=== PATIENT | female | born 1975 | race Two or more races ===

== ENCOUNTER 2021-12-22 12:34 | Emergency (ER) | payer SELFPAY ==
[~2021-12-22] VITALS: Ht 175.3 cm; Wt 61.2 kg
[2021-12-22] MEDS ORDERED: ASPirin 81 mg TAB PO ONE (13:00)
[2021-12-22 13:53] LABS: Basophils # (auto) 0.1 10 ^3/uL (0-0.2); Basophils % (auto) 0.7 % (0.0-2.0); Eosinophils # (auto) 0 10 ^3/uL (0-0.8); Eosinophils % (auto) 0.5 % (0.0-7.0); Hemoglobin 13.4 g/dL (12.2-16.2); Lymphocytes # (auto) 1.6 10 ^3/uL (0.4-5.4); Lymphocytes % (auto) 18.7 % (10.0-50.0); Mean Corpuscular Hemoglobin 30.7 pg (28.0-32.0); Mean Corpuscular Hgb Conc. 33.4 g/dL (32.0-36.0); Mean Corpuscular Volume 91.7 fL (80.0-100.0); Monocytes # (auto) 0.8 10 ^3/uL (0-1.3); Monocytes % (auto) 9.1 % (0.0-12.0); Neutrophils # (auto) 5.9 10 ^3/uL (1.6-8.6); Nucleated Red Blood Cells % 0.1 %; Red Blood Cells 4.36 10^6/uL (4.0-5.20); Red Cell Distribution Width 12.6 % (11.8-14.3); White Blood Cell 8.4 10^3/uL (4.4-10.8)
[2021-12-22 14:24] LABS: Albumin 3.7 g/dL (3.4-5.0); Calcium 8.7 mg/dL (8.5-10.1); Potassium 3.6 mmol/L (3.5-5.1)
[2021-12-22 14:28] LABS: BUN/Creatinine Ratio 6.3; Bilirubin, Total 0.4 mg/dL (0.2-1.0); Total Protein 7.7 g/dL (6.4-8.2)
[2021-12-22] MEDS ORDERED: LORA0.5T20 PO ×4 (16:38→17:29)
[2021-12-22 17:46] VITALS: BP 125/72
== END 2021-12-22 17:49 | disposition home or self-care (01) ==
LOC: ER 12:34
DX: R07.89 Other chest pain (principal); F41.9 Anxiety disorder, unspecified
CPT/HCPCS: 36415; 71045; 80053; 84484; 85025; 93005

== ENCOUNTER 2022-08-12 12:54 | Emergency (ER) | payer MEDICAID ==
[~2022-08-12] VITALS: Ht 172.7 cm; Wt 63.3 kg
[~2022-08-12 12:54] MED LIST: LORA0.5T20 PO
[2022-08-12 13:38] LABS: Basophils # (auto) 0.1 10 ^3/uL (0-0.2); Basophils % (auto) 2.2 % (0.0-2.0); Eosinophils # (auto) 0.3 10 ^3/uL (0-0.8); Eosinophils % (auto) 5.8 % (0.0-7.0); Hematocrit 38.9 % (36.0-46.0); Lymphocytes # (auto) 2.2 10 ^3/uL (0.4-5.4); Lymphocytes % (auto) 46.9 % (10.0-50.0); Mean Corpuscular Hemoglobin 30.1 pg (28.0-32.0); Mean Corpuscular Hgb Conc. 33.4 g/dL (32.0-36.0); Mean Corpuscular Volume 90.1 fL (80.0-100.0); Monocytes # (auto) 0.5 10 ^3/uL (0-1.3); Monocytes % (auto) 11.5 % (0.0-12.0); Neutrophils # (auto) 1.6 10 ^3/uL (1.6-8.6); Neutrophils % (auto) 33.6 % (37.0-80.0); Nucleated Red Blood Cells % 0.2 %; Red Blood Cells 4.32 10^6/uL (4.0-5.20); Red Cell Distribution Width 12.4 % (11.8-14.3); White Blood Cell 4.6 10^3/uL (4.4-10.8)
[2022-08-12 13:53] LABS: Albumin 4.3 g/dL (3.4-5.0); Calcium 9.1 mg/dL (8.5-10.1); Magnesium 2.2 mg/dL (1.6-2.6); Potassium 3.9 mmol/L (3.5-5.1)
[2022-08-12 13:54] LABS: INR 1.09 (0.9-1.15); Partial Thromboplastin Time 28.2 sec (24.6-33.4)
[2022-08-12 13:56] LABS: Bilirubin, Total 0.9 mg/dL (0.2-1.0)
[2022-08-12 17:21] VITALS: BP 125/80
== END 2022-08-12 17:23 | disposition home or self-care (01) ==
LOC: ER 12:54
DX: F41.9 Anxiety disorder, unspecified (principal); R07.89 Other chest pain; M54.2 Cervicalgia; R41.82 Altered mental status, unspecified; R42 Dizziness and giddiness; Z79.899 Other long term (current) drug therapy; Z90.710 Acquired absence of both cervix and uterus
CPT/HCPCS: 36415; 70450; 71045; 72040; 80053; 82962; 83735; 83880; 84484; 85025; 85379; 85610; 85730; 93005

== ENCOUNTER 2024-03-12 15:41 | Emergency (ER) | payer MEDICAID ==
[~2024-03-12] VITALS: Ht 172.7 cm; Wt 59.0 kg
[~2024-03-12 15:41] MED LIST changes: +LORA-1121 PO; -LORA0.5T20 PO
[2024-03-12 18:23] VITALS: BP 138/67; TEMP 98.3
[2024-03-12 18:31] VITALS: PULSE 89; RESP 12; O2SAT 99
== END 2024-03-12 19:42 | disposition home or self-care (01) ==
LOC: ER 15:41
DX: T63.2X1A Toxic effect of venom of scorpion, accidental (unintentional), initial encounter (principal); Z90.710 Acquired absence of both cervix and uterus; Y92.098 Other place in other non-institutional residence as the place of occurrence of the external cause